=== PATIENT | female | born 1960 | race Two or more races ===

== ENCOUNTER 2018-01-26 15:38 | Outpatient (CLI) | payer OTHER | END 2018-01-26 16:42 | disposition home or self-care (01) | LOC: DCC 15:38 | DX: I63.9 Cerebral infarction, unspecified (principal); E11.8 Type 2 diabetes mellitus with unspecified complications; I10 Essential (primary) hypertension; E78.5 Hyperlipidemia, unspecified | CPT/HCPCS: G0463 ==

== ENCOUNTER 2018-02-12 15:44 | Outpatient (CLI) | payer OTHER | END 2018-02-12 16:45 | disposition home or self-care (01) | LOC: DCC 15:44 | DX: I63.9 Cerebral infarction, unspecified (principal); I10 Essential (primary) hypertension; E11.8 Type 2 diabetes mellitus with unspecified complications; E78.5 Hyperlipidemia, unspecified | CPT/HCPCS: G0463 ==